=== PATIENT | male | born 1935 | race Asian ===

== ENCOUNTER 2016-03-10 05:09 | Emergency (ER) | payer MEDICARE, MEDICAID ==
[2016-03-10 05:58] LABS: ABSOLUTE NEUTROPHIL COUNT 2.8 K/mm3 (1.8-7.7); BASO % 0.4 % (0.2-1.0); EOS # 0.2 (0.0-0.5); EOS % 3.1 % (0.9-2.9); HEMATOCRIT 36.4 % (32.0-52.0); HEMOGLOBIN 11.7 gm/l (14.0-18.0); IMM NEUT% 0.2 % (0-1); LYMPH # 1.4 (1.0-4.8); MEAN CORPUSCULAR HEMOGLOBIN 28.6 pg (27.0-31.0); MEAN CORPUSCULAR HGB CONC 32.1 g/dl (33.0-37.0); MEAN PLATELET VOLUME 9.7 fl (7.4-10.4); MONO # 0.6 (0.0-0.8); MONO % 11.2 % (4-12); NEUT % 57.1 % (43-75); PLATELET COUNT 171 K/mm3 (130-400)
[2016-03-10 06:14] LABS: ALBUMIN 3.3 gm/dL (3.5-5.7); BUN/CREATININE RATIO 15 (6-20); GLOMERULAR FILTRATION RATE 64 mL/min (60-75)
[2016-03-10 06:23] LABS: URINE APPEARANCE CLEAR; URINE BILIRUBIN NEGATIVE (NEGATIVE); URINE BLOOD NEGATIVE (NEGATIVE); URINE COLOR YELLOW; URINE GLUCOSE (UA) NEGATIVE (NEGATIVE); URINE LEUKOCYTE ESTERASE NEGATIVE (NEGATIVE); URINE NITRITE NEGATIVE (NEGATIVE); URINE PROTEIN NEGATIVE (NEGATIVE); URINE UROBILINOGEN NORMAL (0-1 mg/dl)
[2016-03-10 06:27] LABS: ALB/GLOB RATIO 1.4 (>1.0); ALT/SGPT < 5 U/L (7-52); BLOOD UREA NITROGEN 16 mg/dL (7-25); CALCIUM 8.6 mg/dL (8.6-10.3)
[2016-03-10] MEDS ORDERED: LACTATED RINGERS 1,000 ML ONE (06:30)
[2016-03-10] MEDS ORDERED: DEXTROSE 10% 1,000 ML ONE (06:31)
--- NOTE | 2016-03-10 08:01 | CT ---
HEAD W/O CON COMPARISON: CT head, 01/21/2016 HISTORY: Altered mental status TECHNIQUE: Using a [employer] [address] scanner, images were obtained through the head. An automated dose reduction technique was used to minimize patient radiation dose. DOSE INFORMATION: CTDIvol (mGy): 24.10 DLP(mGycm): 514.00 FINDINGS: Mass: None Intracranial Hemorrhage: None Acute Infarction: None Cerebral hemispheres: No change. Marked atrophy and extensive low-attenuation in the white matter. Basal ganglia: Normal Thalami: Normal Brainstem: Normal Cerebellum: Normal Ventricles: No change. Moderate ventriculomegaly. Enlargement of the third ventricle. Basilar cisterns: Ex vacuo enlargement. Corpus callosum: No change. Elevated and thin. Pituitary fossa: Normal Middle ears and mastoid air cells: Normal Orbits and sinuses: Normal Skull and scalp: Normal Dural sinuses and vessels: Normal dural sinuses. Atherosclerosis of the internal carotid arteries. IMPRESSION: 1. No acute finding. No intracranial hemorrhage or cerebral edema. 2. No change compared to 01/21/2016. Marked cerebral atrophy and extensive chronic small vessel ischemic change of the white matter. Moderate hydrocephalus. The report was sent to the emergency department [facility] record system 03/10/2016 at 08:02
--- NOTE | 2016-03-10 08:02 | RAD ---
CHEST-AP BEDSIDE COMPARISON: Portable chest x-ray, 01/21/2016 HISTORY: Altered mental status. FINDINGS: Views: Frontal chest. Lungs: Low volume. Airspace infiltrate in the left upper lobe and the right lung base. Heart and vessels: Normal Trachea and bronchi: No change. Cardiomegaly. Mediastinum and temo: Normal Costophrenic sulci: Normal Chest wall and bones: Normal Upper abdomen: Normal. IMPRESSION: Infiltrates in the left upper lobe and the right lung base.
== END 2016-03-10 16:18 | disposition home or self-care (01) ==
LOC: ED 05:09
DX: E11.649 Type 2 diabetes mellitus with hypoglycemia without coma (principal); I48.91 Unspecified atrial fibrillation; I11.0 Hypertensive heart disease with heart failure; I50.9 Heart failure, unspecified; G30.9 Alzheimer's disease, unspecified; F02.80 Dementia in other diseases classified elsewhere, unspecified severity, without behavioral disturbance, psychotic disturbance, mood disturbance, and anxiety; G20 Parkinson's disease; Z79.4 Long term (current) use of insulin
CPT/HCPCS: 83605; 85025; 80053; 81003; 84484; 71010; 70450; J7120

== ENCOUNTER 2016-04-06 21:51 | Emergency (ER) | payer MEDICARE, MEDICAID | END 2016-04-07 01:13 | disposition home or self-care (01) | LOC: ED 21:51 | DX: E11.65 Type 2 diabetes mellitus with hyperglycemia (principal); I48.91 Unspecified atrial fibrillation; I50.9 Heart failure, unspecified; I25.2 Old myocardial infarction; G30.9 Alzheimer's disease, unspecified; F02.80 Dementia in other diseases classified elsewhere, unspecified severity, without behavioral disturbance, psychotic disturbance, mood disturbance, and anxiety; Z79.82 Long term (current) use of aspirin ==

== ENCOUNTER 2016-05-14 07:28 | Emergency (ER) | payer MEDICARE, MEDICAID ==
--- NOTE | 2016-05-14 08:34 | CT ---
Exam: CT head without contrast COMPARISON: 03/10/2016 INDICATION: Ground-level fall, head laceration. On blood thinners. TECHNIQUE: CT examination of the head was obtained without contrast. FINDINGS: There is no acute intracranial hemorrhage. There is no abnormal intra or extra-axial fluid collection. There is no edema, mass effect or midline shift. Patchy periventricular and deep white matter hypodensities are again appreciated, compatible with chronic small vessel ischemic changes which are at least moderate in severity. There is mild to moderate global atrophy and ventriculomegaly. There is no depressed skull fracture. There is mild mucosal thickening within the ethmoid sinuses. The remainder of the visualized paranasal sinuses and mastoid air cells are well aerated. There is chronic deformity of the nasal bones. IMPRESSION: No acute intracranial abnormality. Report was uploaded to the EMR at 0829 hours 05/14/2016.
--- NOTE | 2016-05-14 08:38 | CT ---
Exam: CT cervical spine without contrast COMPARISON: None INDICATION: Ground-level fall with head laceration. TECHNIQUE: CT examination of the cervical spine was obtained without contrast. FINDINGS: There is slight exaggeration of the normal cervical lordosis without apparent subluxation. Atlantoaxial relationships are maintained. There is no prevertebral soft tissue swelling. No acute fracture is identified. Old healed fractures are seen involving the right first and second ribs. There is mild multilevel degenerative disc disease most prominent at C5-6. There is multilevel facet arthropathy, most prominent on the right at C4-5 and on the left at C3-4. There is neural foraminal narrowing at C5-6 related to uncovertebral arthropathy and at C3-4 and C4-5 primarily related to the facet arthropathy. Limited evaluation of the lung apices demonstrates no pneumothorax. Paravertebral soft tissues are within normal limits. IMPRESSION: No acute osseous abnormality in the cervical spine. Chronic changes in the bones as above. Report was uploaded to the EMR at 0833 hours 05/14/2016.
== END 2016-05-14 10:40 | disposition home or self-care (01) ==
LOC: ED 07:28
DX: S00.01XA Abrasion of scalp, initial encounter (principal); I50.9 Heart failure, unspecified; E78.00 Pure hypercholesterolemia, unspecified; I25.2 Old myocardial infarction; G30.9 Alzheimer's disease, unspecified; F02.80 Dementia in other diseases classified elsewhere, unspecified severity, without behavioral disturbance, psychotic disturbance, mood disturbance, and anxiety; E11.9 Type 2 diabetes mellitus without complications; I10 Essential (primary) hypertension; G20 Parkinson's disease; W06.XXXA Fall from bed, initial encounter; Y92.122 Bedroom in nursing home as the place of occurrence of the external cause

== ENCOUNTER 2016-06-18 21:00 | Emergency (ER) | payer MEDICARE, OTHER ==
[2016-06-18 22:13] LABS: INR 1.05
[2016-06-18 22:17] LABS: ABSOLUTE NEUTROPHIL COUNT 4.2 K/mm3 (1.8-7.7); BASO % 0.5 % (0.2-1.0); EOS # 0.2 (0.0-0.5); EOS % 2.4 % (0.9-2.9); HEMATOCRIT 41.7 % (32.0-52.0); HEMOGLOBIN 13.4 gm/l (14.0-18.0); IMM NEUT% 0.5 % (0-1); LYMPH # 1.6 (1.0-4.8); LYMPH % 23.5 % (15-45); MEAN CELL VOLUME 88.2 fl (80.0-94.0); MEAN CORPUSCULAR HEMOGLOBIN 28.3 pg (27.0-31.0); MEAN CORPUSCULAR HGB CONC 32.1 g/dl (33.0-37.0); MEAN PLATELET VOLUME 9.7 fl (7.4-10.4); MONO # 0.6 (0.0-0.8); MONO % 9.1 % (4-12); PLATELET COUNT 177 K/mm3 (130-400); RED CELL DISTRIBUTION WIDTH 13.8 % (11.5-14.5)
[2016-06-18 22:22] LABS: ALB/GLOB RATIO 1.4 (>1.0); BLOOD UREA NITROGEN 17 mg/dL (7-25); BUN/CREATININE RATIO 15 (6-20); CALCIUM 9.1 mg/dL (8.6-10.3); GLOMERULAR FILTRATION RATE 64 mL/min (60-75)
[2016-06-18 22:24] LABS: ALT/SGPT < 5 U/L (7-52)
--- NOTE | 2016-06-19 08:01 | CT ---
HEAD W/O CON History: A level fall. Comparison: 05/14/2016. Procedure: 1 mm axial images were obtained through the head from the vertex to the base of the skull without intravenous contrast. Stacked reconstructed 5 mm images were then obtained in the axial, coronal and sagittal planes. Findings: The lateral ventricles, cerebral sulci and sylvian fissures are prominent. No evidence of midline shift is seen. No mass or mass effect is identified. There is a subtle focus of increased attenuation along the peripheral margin of the anterior left frontal lobe, best seen on image 20. Similar findings are also seen to a lesser extent within the anterior right frontal region as well. The possibility of frontal contusions cannot be excluded, though this appearance appears to have possibly been present on the prior examination. Extensive periventricular deep white matter low-attenuation changes are observed. The basilar cisterns are uneffaced. The posterior fossa structures are unremarkable. There is a large prefrontal subcutaneous tissue hematoma observed. The underlying calvarium appears to be intact. Impression: 1. Subtle areas of increased attenuation involving the anterior aspects of both frontal lobes, left greater than right. No areas of parenchymal contusion cannot be excluded, this appearance likely was evident on prior examination of 05/14/2016. 2. Diffuse cerebral atrophy. 3. Extensive periventricular deep white matter low-attenuation changes most consistent with small vessel ischemia considering patient age. 4. A prefrontal subcutaneous tissue hematoma with no underlying fracture visualized. The findings were called to the emergency room at 2233 hours, 06/18/2016, by [facility].
--- NOTE | 2016-06-19 08:07 | CT ---
C-SPINE W/O CON History: Relative fall. Procedure: 1 mm axial images were obtained through the cervical spine from the base of the skull to T1 with stacked reconstructed 2 mm images photographed in the axial, coronal and sagittal planes. Comparison: 05/14/2016. Findings: The osseous structures are intact without evidence of a discrete fracture. The alignment is normal. No significant subluxation is visualized. The facets align appropriately without evidence of a perched or jumped facet. The spinous processes appear to be intact. No prevertebral soft tissue swelling is observed. The pre-dens space is not widened. The odontoid process is intact. The thyroid gland and the visualized lung apices appear to be normal. There are multilevel cervical spondylosis changes observed with uncinate processes atrophy. Impression: 1. No definitive fracture or significant subluxation visualized. 2. Multilevel cervical spondylosis changes and uncinate process hypertrophy. The findings were called to the emergency room at 2233 hours, 06/18/2016, by [facility].
--- NOTE | 2016-06-19 08:19 | CT ---
FACIAL BONES W/O CON History: Ground level fall. Comparison: None. Procedure: 1 mm axial images were obtained through the facial bones without the use of oral or intravenous contrast. Stacked reconstructed 3 mm images were then photographed in the axial, coronal and sagittal planes. Findings: Images of the mandible demonstrate grossly intact osseous structures with no definitive fracture observed. The mandibular condyles appear to be normally located. The orbital and maxillary winkler appear to be intact. There is evidence of what is likely acute on chronic bilateral nasal fractures. A subtle fracture of the anterior nasal septum is also seen with slight leftward deviation. In the sagittal and axial views, there is also evidence of a fracture involving the anterior nasal spine. No significant fluid is identified within the paranasal sinuses. 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 Nasal soft tissue swelling is evident. Impression: 1. Likely acute on chronic bilateral nasal fractures. 2. A subtle fracture of the anterior nasal septum with slight leftward deviation. 3. A comminuted fracture of the anterior nasal spine. 4. 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 5. Nasal soft tissue swelling.. The findings were called to the emergency room at 2233 hours, 06/18/2016, by [facility].
== END 2016-06-19 02:41 | disposition short-term general hospital (02) ==
LOC: ED 21:00
DX: S06.2X0A Diffuse traumatic brain injury without loss of consciousness, initial encounter (principal); G30.9 Alzheimer's disease, unspecified; F02.80 Dementia in other diseases classified elsewhere, unspecified severity, without behavioral disturbance, psychotic disturbance, mood disturbance, and anxiety; I48.91 Unspecified atrial fibrillation; I50.9 Heart failure, unspecified; E78.00 Pure hypercholesterolemia, unspecified; I25.2 Old myocardial infarction; E11.9 Type 2 diabetes mellitus without complications; I10 Essential (primary) hypertension; G20 Parkinson's disease; W18.30XA Fall on same level, unspecified, initial encounter; Y92.129 Unspecified place in nursing home as the place of occurrence of the external cause; Y99.8 Other external cause status; Z79.82 Long term (current) use of aspirin; Z79.01 Long term (current) use of anticoagulants; Z79.4 Long term (current) use of insulin; Z79.899 Other long term (current) drug therapy